=== PATIENT | male | born 2000 | race Caucasian/White ===

== ENCOUNTER 2021-09-06 04:11 | Emergency (ER) | payer OTHER ==
[2021-09-06 04:14] VITALS: BP 144/68; PULSE 68
[2021-09-06] MEDS ORDERED: Diphtheria,Pertussis(Acell),Tetanus Vaccine 0.5 ML Syringe IM ONE (04:32)
[2021-09-06] MEDS ORDERED: Lidocaine 1% 5 ML VIAL INJECT ONE (04:46)
[2021-09-06] MEDS ORDERED: Take Home: Cephalexin 500 MG Cap, 4 Cap Pack PO ONE (05:56)
[2021-09-06] MEDS ORDERED: Bacitracin/Neomycin/Polymyxin B Oint 0.9 GM U/D Packet TOP ONE (06:05)
== END 2021-09-06 06:15 | disposition home or self-care (01) ==
LOC: CC.ED 04:11
DX: S91.112A Laceration without foreign body of left great toe without damage to nail, initial encounter (principal); S00.31XA Abrasion of nose, initial encounter; S00.81XA Abrasion of other part of head, initial encounter; R55 Syncope and collapse; Z86.16 Personal history of COVID-19; Z23 Encounter for immunization; W26.8XXA Contact with other sharp object(s), not elsewhere classified, initial encounter
CPT/HCPCS: 12002; 70450; 72125; 73660-TA; 90471; 90715; 99283; 99284-25; A9270-GY